=== PATIENT | female | born 1950 | race Caucasian/White ===

== ENCOUNTER 2022-12-10 06:00 | Outpatient (RCR) | payer MEDICARE, OTHER, SELFPAY | END 2022-12-10 23:59 | disposition home or self-care (01) | LOC: MPT 06:00 | PROVIDERS: Visit Provider Registered Nurse | DX: M54.30 Sciatica, unspecified side (principal) | CPT/HCPCS: 97110; G0283 ==

== ENCOUNTER 2022-12-11 06:00 | Outpatient (RCR) | payer MEDICARE, OTHER, SELFPAY | END 2023-01-09 23:59 | disposition home or self-care (01) | LOC: MPT 06:00 | PROVIDERS: Visit Provider Registered Nurse | DX: M54.31 Sciatica, right side (principal); M54.32 Sciatica, left side | CPT/HCPCS: 97110; G0283 ==

== ENCOUNTER 2023-01-10 06:00 | Outpatient (RCR) | payer MEDICARE, OTHER, SELFPAY | END 2023-02-02 23:59 | disposition home or self-care (01) | LOC: MPT 06:00 | PROVIDERS: Visit Provider Registered Nurse | DX: M54.31 Sciatica, right side (principal); M54.32 Sciatica, left side | CPT/HCPCS: 97110; 97530; G0283 ==

== ENCOUNTER 2023-12-02 06:00 | Outpatient (RCR) | payer MEDICARE, OTHER, SELFPAY | END 2023-12-11 23:59 | disposition home or self-care (01) | LOC: MPT 06:00 | PROVIDERS: Visit Provider Registered Nurse | DX: M25.511 Pain in right shoulder (principal); M25.512 Pain in left shoulder; M54.2 Cervicalgia | CPT/HCPCS: 97110; 97140; 97162; G0283 ==

== ENCOUNTER 2023-12-12 06:00 | Outpatient (RCR) | payer MEDICARE, OTHER, SELFPAY | END 2024-01-10 23:59 | disposition home or self-care (01) | LOC: MPT 06:00 | PROVIDERS: Visit Provider Registered Nurse | DX: M25.519 Pain in unspecified shoulder (principal); R53.1 Weakness | CPT/HCPCS: 97110; 97140; G0283 ==

== ENCOUNTER → 2024-02-23 09:10 | Outpatient (BNVA) | payer MEDICARE, OTHER, SELFPAY | PROVIDERS: Visit Provider Nurse Practitioner | DX: M25.561 Pain in right knee (principal); M25.562 Pain in left knee | CPT/HCPCS: 73560; 73565 ==

== ENCOUNTER 2024-02-23 11:18 | Outpatient (CLI) | payer MEDICARE, OTHER, SELFPAY | END 2024-02-23 11:19 | disposition home or self-care (01) | LOC: SPT 11:19 | PROVIDERS: Visit Provider Nurse Practitioner | DX: Z46.89 Encounter for fitting and adjustment of other specified devices (principal); M17.11 Unilateral primary osteoarthritis, right knee; M17.12 Unilateral primary osteoarthritis, left knee | CPT/HCPCS: 20610; 97760; J2795; J3301; L1812 ==

== ENCOUNTER 2024-02-29 06:00 | Outpatient (RCR) | payer MEDICARE, OTHER, SELFPAY | END 2024-03-12 23:59 | disposition home or self-care (01) | LOC: MPT 06:00 | PROVIDERS: Visit Provider Nurse Practitioner | DX: M17.0 Bilateral primary osteoarthritis of knee (principal) | CPT/HCPCS: 97110; 97162 ==

== ENCOUNTER → 2024-03-02 13:17 | Outpatient (BNVA) | payer MEDICARE, OTHER, SELFPAY | PROVIDERS: Visit Provider Podiatrist Foot & Ankle Surgery | DX: Q82.8 Other specified congenital malformations of skin (principal); L60.3 Nail dystrophy; I73.9 Peripheral vascular disease, unspecified | CPT/HCPCS: 11721; 17110; 99203 ==

== ENCOUNTER 2024-03-13 06:00 | Outpatient (RCR) | payer MEDICARE, OTHER, SELFPAY | END 2024-04-11 23:59 | disposition home or self-care (01) | LOC: MPT 06:00 | PROVIDERS: Visit Provider Nurse Practitioner | DX: M17.0 Bilateral primary osteoarthritis of knee (principal) | CPT/HCPCS: 97110; 97530 ==

== ENCOUNTER 2024-04-12 06:30 | Outpatient (RCR) | payer MEDICARE, OTHER, SELFPAY | END 2024-05-12 23:59 | disposition home or self-care (01) | LOC: MPT 06:30 | PROVIDERS: Visit Provider Nurse Practitioner | DX: M17.0 Bilateral primary osteoarthritis of knee (principal) | CPT/HCPCS: 97110 ==

== ENCOUNTER → 2024-05-25 08:14 | Outpatient (BNVA) | payer MEDICARE, OTHER, SELFPAY | PROVIDERS: Visit Provider Nurse Practitioner | DX: M17.0 Bilateral primary osteoarthritis of knee (principal) | CPT/HCPCS: 20610; 99213; J7318 ==

== ENCOUNTER → 2024-06-01 13:46 | Outpatient (BNVA) | payer MEDICARE, OTHER, SELFPAY | PROVIDERS: Visit Provider Podiatrist Foot & Ankle Surgery | DX: I73.9 Peripheral vascular disease, unspecified (principal); Q82.8 Other specified congenital malformations of skin; L60.3 Nail dystrophy | CPT/HCPCS: 11721; 17110 ==

== ENCOUNTER → 2024-08-29 12:55 | Outpatient (BNVA) | payer MEDICARE, OTHER, SELFPAY | PROVIDERS: Visit Provider Nurse Practitioner | DX: M17.0 Bilateral primary osteoarthritis of knee (principal); G89.29 Other chronic pain | CPT/HCPCS: 20610; 99213; J1100; J2795; J3301 ==

== ENCOUNTER → 2024-09-21 14:03 | Outpatient (BNVA) | payer MEDICARE, OTHER, SELFPAY | PROVIDERS: Visit Provider Podiatrist Foot & Ankle Surgery | DX: I73.9 Peripheral vascular disease, unspecified (principal); Q82.8 Other specified congenital malformations of skin; L84 Corns and callosities | CPT/HCPCS: 11721; 17110 ==

== ENCOUNTER → 2024-12-09 12:22 | Outpatient (BNVA) | payer MEDICARE, OTHER, SELFPAY | PROVIDERS: Visit Provider Nurse Practitioner | DX: M17.0 Bilateral primary osteoarthritis of knee (principal) | CPT/HCPCS: 20610; J1100; J2795; J3301; J9999 ==

== ENCOUNTER → 2025-01-02 10:38 | Outpatient (BNVA) | payer MEDICARE, OTHER, SELFPAY | PROVIDERS: Visit Provider Podiatrist Foot & Ankle Surgery | DX: I73.9 Peripheral vascular disease, unspecified (principal); L60.3 Nail dystrophy | CPT/HCPCS: 11721 ==

== ENCOUNTER → 2025-04-07 10:07 | Outpatient (BNVA) | payer MEDICARE, OTHER, SELFPAY | PROVIDERS: Visit Provider Nurse Practitioner | DX: M17.0 Bilateral primary osteoarthritis of knee (principal) | CPT/HCPCS: 20610; J1100; J2795; J3301; J9999 ==

== ENCOUNTER → 2025-04-11 09:49 | Outpatient (BNVA) | payer MEDICARE, OTHER, SELFPAY | PROVIDERS: Visit Provider Podiatrist Foot & Ankle Surgery | DX: I73.9 Peripheral vascular disease, unspecified (principal); L60.3 Nail dystrophy; L60.8 Other nail disorders | CPT/HCPCS: 11721 ==